=== PATIENT | female | born 1990 | race Caucasian/White ===

== ENCOUNTER 2025-03-19 16:32 | Emergency (ER) | payer MEDICAID ==
[2025-03-19 17:37] LABS: BASOPHILS ABSOLUTE AUTO 0.04 K/uL (0.00-0.10); BASOPHILS PERCENT AUTO 0.4 % (0.1-1.3); EOSINOPHILS ABSOLUTE AUTO 0.19 K/uL (0.00-0.40); EOSINOPHILS PERCENT AUTO 1.7 % (0.0-5.4); HEMATOCRIT 43.2 % (34.3-46.0); HEMOGLOBIN 14.2 g/dL (11.2-15.5); IMMATURE GRAN ABSOLUTE AUTO 0.03 K/uL (0.00-0.23); IMMATURE GRAN PERCENT AUTO 0.3 % (0.0-0.7); LYMPHOCYTES PERCENT AUTO 11.5 % (11.4-47.7); MEAN CORPUSCULAR HEMOGLOBIN 27.3 pg (31.6-35.5); MEAN CORPUSCULAR HGB CONC 32.9 g/dL (31.6-35.5); MEAN CORPUSCULAR VOLUME 82.9 fL (81.4-99.0); MONOCYTES PERCENT AUTO 7.1 % (3.3-12.6); NEUTROPHILS ABSOLUTE AUTO 8.94 K/uL (1.0-7.6); PLATELET COUNT,PLT 295 K/uL (130-375); RED BLOOD CELL COUNT 5.21 M/uL (3.77-5.24); WHITE BLOOD CELL COUNT,WBC 11.3 K/uL (3.2-11.0)
[2025-03-19] MEDS: Ondansetron 4 MG/2 ML SDV IVPUSH ONE (17:37)
[2025-03-19] MEDS: Sodium Chloride 0.9% 1,000 ML IV STA (17:37)
[2025-03-19] MEDS: Morphine 2 MG/ML SYRINGE IVPUSH ONE (17:38)
[2025-03-19 17:57] LABS: A/G RATIO 0.9 (1.2-2.2); ALANINE AMINOTRANSFERASE,ALT 223 U/L (12-78); ALBUMIN 3.6 g/dL (3.4-5.0); ALKALINE PHOSPHATASE 694 U/L (46-116); ANION GAP 10.5 mmol/L (5.0-14.0); ASPARTATE AMNIOTRANSFERASE,AST 447 U/L (15-37); BILIRUBIN TOTAL 1.8 mg/dL (0.2-1.0); BLOOD UREA NITROGEN,BUN 12 mg/dL (7-18); CALCIUM 9.6 mg/dL (8.5-10.1); CARBON DIOXIDE,CO2 28 mmol/L (21-32); CHLORIDE,CL 103 mmol/L (100-108); CREATININE 0.6 mg/dL (0.6-1.0); EST CRCL DRUG DOSING (CG) 105.48 mL/min; ESTIMATED GFR 121 mL/min (>60); GLUCOSE RANDOM 112 mg/dL (74-106); PROTEIN TOTAL,TP 7.5 g/dL (6.4-8.2); SODIUM,NA 141 mmol/L (140-148)
[2025-03-19] MEDS: Piperacillin/Tazobactam 2.25 GM in Sodium Chloride 0.9% 50 ML IV ONE (18:49)
== END 2025-03-19 20:28 | disposition home or self-care (01) ==
LOC: JP.ED 16:32
DX: K81.9 Cholecystitis, unspecified (principal)
CPT/HCPCS: 36415; 80053; 83690; 85025; 86140; 96361; 96365; 96375; 99284; J2270; J2405; J2543; J7030